=== PATIENT | male | born 1975 | race Two or more races ===

== ENCOUNTER 2021-09-27 18:49 | Emergency (ER) | payer OTHER ==
[~2021-09-27] VITALS: Ht 172.7 cm; Wt 79.4 kg
[2021-09-27] MEDS ORDERED: LIPITOR40 MG (19:00)
[2021-09-27] MEDS ORDERED: NORFLEX100MG PO (20:05)
[2021-09-27] MEDS ORDERED: DOLOGEN CAPLET1 EACH PO (20:05)
== END 2021-09-27 20:07 | disposition home or self-care (01) ==
LOC: ER 18:49
DX: M54.50 Low back pain, unspecified (principal); M54.2 Cervicalgia; Z98.890 Other specified postprocedural states